=== PATIENT | female | born 1990 | race Two or more races ===

== ENCOUNTER 2021-03-28 06:15 | Day surgery (SDC) | payer OTHER ==
[~2021-03-28 06:15] MED LIST: ACETAMINOOPHEN-1 TAB PO; CIPRO500 MG PO; SYNTHROID112 MCG PO
== END 2021-03-28 10:30 | disposition home or self-care (01) ==
LOC: CIR.AMB 06:15
PROVIDERS: ATTEND Obstetrics & Gynecology Maternal & Fetal Medicine
DX: O02.1 Missed abortion (principal); Z20.822 Contact with and (suspected) exposure to COVID-19